=== PATIENT | female | born 1980 | race Hispanic/Latino ===

== ENCOUNTER 2018-11-12 05:26 | Emergency (ER) | payer OTHER, SELFPAY ==
[2018-11-12] MEDS ORDERED: HYDROCODONE/APAP 5/325 MG TAB ONE (06:25)
--- NOTE | 2018-11-12 06:48 | ER ---
Nurse's Notes [facility] Name: Farheen Espino Age: 38 yrs Sex: Female : 1980 Arrival Date: 11/12/2018 Time: 05:27 Bed 19 Private MD: Diagnosis: Gout Presentation: 11/12 05:34 Presenting complaint: Patient states: Pain to left ankle and great toe joint x 2 days, lp1 worsening pain; States hx of gout, states feels similar. Transition of care: patient was not received from another setting of care. Onset of symptoms was November 12, 2018. Risk Assessment: Do you want to hurt yourself or someone else? Patient reports no desire to harm self or others. Initial Sepsis Screen: Does the patient meet any 2 criteria? No. Patient's initial sepsis screen is negative. Does the patient have a suspected source of infection? No. Patient's initial sepsis screen is negative. Care prior to arrival: None. 05:34 Method Of Arrival: Wheelchair lp1 05:34 Acuity: CASSIA 4 lp1 CENTER MGR: 05:36 LMP N/A - Irregular menses lp1 Historical: - Allergies: 05:36 phenazopyridine HCl; lp1 05:36 Codeine; lp1 05:36 Cephalexin Monohydrate; lp1 05:36 Keflex; lp1 - Home Meds: 05:36 None [Active]; lp1 - PMHx: 05:36 Hypothyroidism; polycystic overy; Gout; lp1 - PSHx: 05:36 Cholecystectomy; ; Tubal ligation; lp1 - Immunization history:: Adult Immunizations up to date. - Social history:: Smoking status: Patient uses tobacco products, smokes one-half pack cigarettes per day. - Ebola Screening: : No symptoms or risks identified at this time. Screenin:37 Abuse screen: Denies threats or abuse. Denies injuries from another. Nutritional lp1 screening: No deficits noted. Tuberculosis screening: No symptoms or risk factors identified. Fall Risk None identified. Assessment: 05:33 General: Appears uncomfortable, Behavior is calm, cooperative, ice pack placed to left ak1 ankle. . Pain: Complains of pain in left lateral malleolus, left medial malleolus and left first toe. Neuro: No deficits noted. Cardiovascular: No deficits noted. Respiratory: No deficits noted. GI: No signs and/or symptoms were reported involving the gastrointestinal system. : No signs and/or symptoms were reported regarding the genitourinary system. EENT: No signs and/or symptoms were reported regarding the EENT system. Derm: Skin is intact, is healthy with good turgor, Skin is dry, Skin is pink, warm \\T\\ dry. Reports pain that is 9 out of 10 on a pain scale. Musculoskeletal: Range of motion: limited in left ankle pt with limping gait to ER19 from lobby. 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 Injury Description: pt denies injury to left great toe or left ankle. Vital Signs: 05:36 BP 127 / 95; Pulse 98; Resp 18; Temp 97.8(TE); Pulse Ox 95% on R/A; Weight 122.47 kg; lp1 Height 4 ft. 11 in. (149.86 cm); Pain 9/10; 06:36 BP 112 / 73; Pulse 75; Resp 18; Pulse Ox 98% on R/A; ak1 05:36 Body Mass Index 54.53 (122.47 kg, 149.86 cm) lp1 ED Course: 05:27 Patient arrived in ED. ds1 05:29 Marline Ruelas, MACI is Primary Nurse. ak1 05:35 Triage completed. lp1 05:37 Arm band placed on right wrist. lp1 05:37 Patient has correct armband on for positive identification. lp1 06:02 Peter Bell NP is PHCP. pm1 06:02 Isaias Arreaga MD is Attending Physician. pm1 06:07 Initial lab(s) drawn, by me, sent to lab. ak1 06:35 Patient did not have IV access during this emergency room visit. ak1 06:40 X-ray completed. Portable x-ray completed in exam room. Patient tolerated procedure kw well. 06:42 Ankle Left 3 View XRAY In Process Unspecified. EDMS 07:02 No provider procedures requiring assistance completed. ak1 Administered Medications: 06:11 Drug: [place] 5 mg-325 mg 1 tabs Route: PO; ak1 06:34 Follow up: Response: No adverse reaction; Pain is decreased ak1 07:01 Drug: TORadol 60 mg Route: IM; Site: left gluteus; ak1 07:01 Follow up: Response: No adverse reaction; Medication administered at discharge. ak1 07:01 Drug: predniSONE 60 mg Route: PO; ak1 07:02 Follow up: Response: No adverse reaction; Medication administered at discharge. ak1 Outcome: 06:47 Discharge ordered by MD. pm1 07:02 Discharged to home via wheelchair, with family. ak1 07:02 Condition: good 07:02 Discharge instructions given to patient, family, Instructed on discharge instructions, follow up and referral plans. no drinking with medication, no driving heavy equipment, medication usage, Demonstrated understanding of instructions, follow-up care, medications, Prescriptions given X 1. 07:15 Patient left the ED. hb Signatures: Dispatcher [employer] EDMS Dayami Silva ds1 Kerry Fernandez Laura, RN RN lp1 Marline Ruelas RN RN ak1 Peter Bell, ABNER VENEER SLICING MACHINE OPERATOR pm1 Codie Meredith RN RN hb
--- NOTE | 2018-11-12 06:48 | EDPHYS ---
Physician Documentation [facility] Name: Farheen Espino Age: 38 yrs Sex: Female : 1980 Arrival Date: 11/12/2018 Time: 05:27 Bed 19 Private MD: ED Physician Isaias Arreaga HPI: 11/12 06:42 This 38 yrs old Female presents to ER via Wheelchair with complaints of Left pm1 Foot Pain. 06:42 The patient presents with pain. The complaints affect the left ankle and left first pm1 toe. Context: The problem was sustained at home, resulted from gout flare up. Onset: The symptoms/episode began/occurred 3 day(s) ago. Modifying factors: The symptoms are alleviated by nothing. the symptoms are aggravated by movement, weight bearing. Associated signs and symptoms: Pertinent negatives calf tenderness, fever, numbness, tingling. Treatment prior to arrival includes: over the counter medications, NSAIDS. Severity of symptoms: in the emergency department the symptoms are unchanged. The patient has experienced similar episodes in the past, a few times. The patient has not recently seen a physician. 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 - Social history:: Smoking status: Patient uses tobacco products, smokes one-half pack cigarettes per day. - Ebola Screening: : No symptoms or risks identified at this time. ROS: 06:42 Constitutional: Negative for fever, chills, and weight loss, Eyes: Negative for injury, pm1 pain, redness, and discharge, ENT: Negative for injury, pain, and discharge, Neck: Negative for injury, pain, and swelling, Cardiovascular: Negative for chest pain, palpitations, and edema, Respiratory: Negative for shortness of breath, cough, wheezing, and pleuritic chest pain, Abdomen/GI: Negative for abdominal pain, nausea, vomiting, diarrhea, and constipation, Back: Negative for injury and pain, : Negative for injury, bleeding, discharge, and swelling. 06:42 Skin: Negative for injury, rash, and discoloration, Neuro: Negative for headache, weakness, numbness, tingling, and seizure. 06:42 MS/extremity: Positive for pain, of the left ankle and left first toe, Negative for injury or acute deformity, deformity, paresthesias. Exam: 06:42 Constitutional: This is a well developed, well nourished patient who is awake, alert, pm1 and in no acute distress. Head/Face: Normocephalic, atraumatic. Chest/axilla: Normal chest wall appearance and motion. Nontender with no deformity. No lesions are appreciated. Cardiovascular: Regular rate and rhythm with a normal S1 and S2. No gallops, murmurs, or rubs. Normal PMI, no JVD. No pulse deficits. Respiratory: Lungs have equal breath sounds bilaterally, clear to auscultation and percussion. No rales, rhonchi or wheezes noted. No increased work of breathing, no retractions or nasal flaring. Back: No spinal tenderness. No costovertebral tenderness. Full range of motion. Skin: Warm, dry with normal turgor. Normal color with no rashes, no lesions, and no evidence of cellulitis. 06:42 Musculoskeletal/extremity: Extremities: grossly normal except: noted in the left first toe and left medial malleolus and left lateral malleolus: tenderness, Circulation is intact in all extremities. Sensation intact. 06:42 Neuro: Orientation: is normal, Motor: moves all fours, strength is normal, strength is 5/5 in all extremities, Sensation: is normal, no obvious gross deficits. Vital Signs: 05:36 BP 127 / 95; Pulse 98; Resp 18; Temp 97.8(TE); Pulse Ox 95% on R/A; Weight 122.47 kg; lp1 Height 4 ft. 11 in. (149.86 cm); Pain 9/10; 06:36 BP 112 / 73; Pulse 75; Resp 18; Pulse Ox 98% on R/A; ak1 05:36 Body Mass Index 54.53 (122.47 kg, 149.86 cm) lp1 MDM: 06:02 Patient medically screened. pm1 06:39 Data reviewed: vital signs. Data interpreted: Pulse oximetry: on room air is 98 %. pm1 Interpretation: normal. 06:39 Counseling: I had a detailed discussion with the patient and/or guardian regarding: the pm1 historical points, exam findings, and any diagnostic results supporting the discharge/admit diagnosis, lab results, radiology results, the need for outpatient follow up, to return to the emergency department if symptoms worsen or persist or if there are any questions or concerns that arise at home. 11/12 05:55 Order name: Uric Acid; Complete Time: 06:38 gs 11/12 05:55 Order name: Ankle Left 3 View XRAY gs Administered Medications: 06:11 Drug: [place] 5 mg-325 mg 1 tabs Route: PO; ak1 06:34 Follow up: Response: No adverse reaction; Pain is decreased ak1 07:01 Drug: TORadol 60 mg Route: IM; Site: left gluteus; ak1 07:01 Follow up: Response: No adverse reaction; Medication administered at discharge. ak1 07:01 Drug: predniSONE 60 mg Route: PO; ak1 07:02 Follow up: Response: No adverse reaction; Medication administered at discharge. ak1 Disposition: 11/12/18 06:47 Discharged to Home. Impression: Gout. - Condition is Stable. - Discharge Instructions: Gout. - Prescriptions for Medrol (Bjorn) 4 mg Oral Tablets, Dose Pack - take 1 tablet by ORAL route as directed - follow package instructions; 1 packet. - Medication Reconciliation Form, Thank You Letter, Antibiotic Education, Prescription Opioid Use form. - Follow up: Emergency Department; When: As needed; Reason: Worsening of condition. Follow up: Private Physician; When: 2 - 3 days; Reason: Recheck today's complaints, Continuance of care, Re-evaluation by your physician. - Problem is new. - Symptoms have improved. Addendum: 11/13/2018 13:06 Co-signature as Attending Physician, Isaias Arreaga MD. g s Signatures: Dispatcher [employer] EDLily Celis RN RN lp1 Marline Ruelas RN RN ak1 Peter Bell, GENERATING PLANT SUPERINTENDENT GENERATING PLANT SUPERINTENDENT pm1 Codie Meredith RN RN hb Starr, Gregory, MD MD Corrections: (The following items were deleted from the chart) 11/12 07:15 06:47 11/12/2018 06:47 Discharged to Home. Impression: Gout. Condition is Stable. Forms hb are Medication Reconciliation Form, Thank You Letter, Antibiotic Education, Prescription Opioid Use. Follow up: Emergency Department; When: As needed; Reason: Worsening of condition. Follow up: Private Physician; When: 2 - 3 days; Reason: Recheck today's complaints, Continuance of care, Re-evaluation by your physician. Problem is new. Symptoms have improved. pm1
[2018-11-12] MEDS ORDERED: KETOROLAC 30 MG/ML INJ ONE (07:09)
[2018-11-12] MEDS ORDERED: predniSONE 20 MG TAB ONE (07:09)
[2018-11-12 07:27] VITALS: TEMP 97.8
[2018-11-12 07:29] VITALS: BP 112/73; O2SAT 98
--- NOTE | 2018-11-12 08:17 | RAD REPORT ---
EXAM DESCRIPTION: RAD - Ankle Left 3 View - 11/12/2018 6:40 am CLINICAL HISTORY: PAIN COMPARISON: No comparisons FINDINGS: Moderate soft tissue swelling is seen about the ankle. No acute fracture or dislocation is seen. Small plantar calcaneal spur.
== END 2018-11-12 07:15 | disposition home or self-care (01) ==
LOC: ER 05:26
DX: M10.9 Gout, unspecified (principal); E03.9 Hypothyroidism, unspecified; F17.200 Nicotine dependence, unspecified, uncomplicated; Z88.6 Allergy status to analgesic agent; Z88.1 Allergy status to other antibiotic agents; Z88.5 Allergy status to narcotic agent
CPT/HCPCS: 36415; 84550; 96372; 99284; J7512

== ENCOUNTER 2018-12-18 16:55 | Emergency (ER) | payer SELFPAY ==
--- NOTE | 2018-12-18 17:15 | ER ---
Nurse's Notes [facility] Name: Farheen Espino Age: 38 yrs Sex: Female : 1980 Arrival Date: 12/18/2018 Time: 16:58 Bed 5 Private MD: Diagnosis: Gout Presentation: 12/18 16:59 Presenting complaint: Patient states: hx of gout, a week ago, i started having this hj pain on the top of my R foot, im not taking anything for gout because i don't have a doctor and i don't have insurance; denies trauma to the area;. Transition of care: patient was not received from another setting of care. Onset of symptoms was December 18, 2018. Risk Assessment: Do you want to hurt yourself or someone else? Patient reports no desire to harm self or others. Initial Sepsis Screen: Does the patient meet any 2 criteria? No. Patient's initial sepsis screen is negative. Does the patient have a suspected source of infection? No. Patient's initial sepsis screen is negative. Care prior to arrival: None. 16:59 Method Of Arrival: Ambulatory 16:59 Acuity: CASSIA 4 hj Triage Assessment: 17:05 General: Behavior is appropriate for age. 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 - Social history:: Smoking status: . - Ebola Screening: : Patient denies travel to an Ebola-affected area in the 21 days before illness onset. Screenin:03 Abuse screen: Denies threats or abuse. Nutritional screening: No deficits noted. tw2 Tuberculosis screening: No symptoms or risk factors identified. Fall Risk None identified. Assessment: 17:05 General: Appears in no apparent distress. Pain: Complains of pain in right foot. Neuro: tw2 Level of Consciousness is awake, alert, obeys commands, Oriented to person, place, time, situation. Cardiovascular: Patient's skin is warm and dry. Respiratory: Airway is patent Respiratory effort is even, unlabored, Respiratory pattern is regular, symmetrical. GI: No signs and/or symptoms were reported involving the gastrointestinal system. : No signs and/or symptoms were reported regarding the genitourinary system. EENT: No signs and/or symptoms were reported regarding the EENT system. Derm: Reports increased pain right foot. Musculoskeletal: Range of motion: intact in all extremities. 17:36 Reassessment: Patient appears in no apparent distress at this time. No changes from sv previously documented assessment. Patient and/or family updated on plan of care and expected duration. Pain level reassessed. Patient is alert, oriented x 3, equal unlabored respirations, skin warm/dry/pink. Vital Signs: 17:01 BP 129 / 77; Pulse 108; Resp 18; Temp 98.4(TE); Pulse Ox 97% on R/A; Weight 117.93 kg; hj Height 4 ft. 11 in. (149.86 cm); Pain 9/10; 17:01 Body Mass Index 52.51 (117.93 kg, 149.86 cm) ED Course: 16:58 Patient arrived in ED. as 17:00 Triage completed. hj 17:00 Arm band placed on right wrist. hj 17:03 Becky Martinez, RN is Primary Nurse. tw2 17:03 Bed in low position. Call light in reach. tw2 17:05 Peter Bell NP is PHCP. pm1 17:05 Cali Adams MD is Attending Physician. pm1 17:20 No provider procedures requiring assistance completed. Patient did not have IV access sv during this emergency room visit. Administered Medications: 17:20 Drug: [place] 5 mg-325 mg 1 tabs Route: PO; sv 17:36 Follow up: Response: No adverse reaction sv 17:20 Drug: TORadol 60 mg Route: IM; Site: right gluteus; sv 17:36 Follow up: Response: No adverse reaction sv 17:20 Drug: Decadron 10 mg Route: IM; Site: right gluteus; sv 17:35 Follow up: Response: No adverse reaction sv Outcome: 17:15 Discharge ordered by . pm1 17:36 Discharged to home via wheelchair, with family. sv 17:36 Condition: stable 17:36 Discharge instructions given to patient, family, Instructed on discharge instructions, follow up and referral plans. medication usage, Demonstrated understanding of instructions, follow-up care, medications, Prescriptions given X 2. 17:36 Patient left the ED. sv Signatures: Sameera Dominguez, RN RN Trina Robleod Henry RN MACI Peter Bell, GROUNDSKEEPER SUPERVISOR GROUNDSKEEPER SUPERVISOR pm1 Becky Martinez RN RN tw2
--- NOTE | 2018-12-18 17:16 | EDPHYS ---
Physician Documentation [facility] Name: Farheen Espino Age: 38 yrs Sex: Female : 1980 Arrival Date: 12/18/2018 Time: 16:58 Bed 5 Private MD: ED Physician Cali Adams HPI: 12/18 17:09 This 38 yrs old Female presents to ER via Ambulatory with complaints of Right pm1 Foot Pain - Gout. 17:09 The patient presents with pain. The complaints affect the right ankle and right foot. pm1 Context: The problem was sustained at home, resulted from gout flare up, the patient can fully bear weight, the patient is able to ambulate. Onset: The symptoms/episode began/occurred 1 week(s) ago. Modifying factors: The symptoms are alleviated by elevating leg, the symptoms are aggravated by movement, weight bearing. Associated signs and symptoms: Pertinent negatives calf tenderness, fever, numbness, tingling. Severity of symptoms: in the emergency department the symptoms are actually worse. The patient has experienced similar episodes in the past, multiple times. The patient has not recently seen a physician, Seen in ED by me one month ago for the same complaint. Denies trauma. 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 - Social history:: Smoking status: . - Ebola Screening: : Patient denies travel to an Ebola-affected area in the 21 days before illness onset. ROS: 17:09 Constitutional: Negative for fever, chills, and weight loss, Neck: Negative for injury, pm1 pain, and swelling, Cardiovascular: Negative for chest pain, palpitations, and edema, Respiratory: Negative for shortness of breath, cough, wheezing, and pleuritic chest pain, Abdomen/GI: Negative for abdominal pain, nausea, vomiting, diarrhea, and constipation, Back: Negative for injury and pain. 17:09 Skin: Negative for injury, rash, and discoloration, Neuro: Negative for headache, weakness, numbness, tingling, and seizure. 17:09 MS/extremity: Positive for pain, swelling, of the right ankle and right foot, Negative for decreased range of motion, deformity. Exam: 17:09 Constitutional: This is a well developed, well nourished patient who is awake, alert, pm1 and in no acute distress. Head/Face: Normocephalic, atraumatic. Neck: Trachea midline, no thyromegaly or masses palpated, and no cervical lymphadenopathy. Supple, full range of motion without nuchal rigidity, or vertebral point tenderness. No Meningismus. Chest/axilla: Normal chest wall appearance and motion. Nontender with no deformity. No lesions are appreciated. Cardiovascular: Regular rate and rhythm with a normal S1 and S2. No gallops, murmurs, or rubs. Normal PMI, no JVD. No pulse deficits. Respiratory: Lungs have equal breath sounds bilaterally, clear to auscultation and percussion. No rales, rhonchi or wheezes noted. No increased work of breathing, no retractions or nasal flaring. Abdomen/GI: Soft, non-tender, with normal bowel sounds. No distension or tympany. No guarding or rebound. No evidence of tenderness throughout. Back: No spinal tenderness. No costovertebral tenderness. Full range of motion. Skin: Warm, dry with normal turgor. Normal color with no rashes, no lesions, and no evidence of cellulitis. 17:09 Musculoskeletal/extremity: Extremities: grossly normal except: noted in the right ankle: swelling, tenderness, There is no evidence of decreased ROM, deformity, ROM: intact in all extremities, Circulation is intact in all extremities. Sensation intact. 17:09 Neuro: Orientation: is normal, Motor: is normal, Sensation: is normal, no obvious gross deficits. Vital Signs: 17:01 BP 129 / 77; Pulse 108; Resp 18; Temp 98.4(TE); Pulse Ox 97% on R/A; Weight 117.93 kg; hj Height 4 ft. 11 in. (149.86 cm); Pain 9/10; 17:01 Body Mass Index 52.51 (117.93 kg, 149.86 cm) MDM: 17:06 Patient medically screened. pm1 17:09 Data reviewed: vital signs. Data interpreted: Pulse oximetry: on room air is 97 %. pm1 Interpretation: normal. Counseling: I had a detailed discussion with the patient and/or guardian regarding: the historical points, exam findings, and any diagnostic results supporting the discharge/admit diagnosis. 17:14 Counseling: I had a detailed discussion with the patient and/or guardian regarding: the pm1 historical points, exam findings, and any diagnostic results supporting the discharge/admit diagnosis, the need for outpatient follow up, to return to the emergency department if symptoms worsen or persist or if there are any questions or concerns that arise at home. Administered Medications: 17:20 Drug: [place] 5 mg-325 mg 1 tabs Route: PO; sv 17:36 Follow up: Response: No adverse reaction sv 17:20 Drug: TORadol 60 mg Route: IM; Site: right gluteus; sv 17:36 Follow up: Response: No adverse reaction sv 17:20 Drug: Decadron 10 mg Route: IM; Site: right gluteus; sv 17:35 Follow up: Response: No adverse reaction sv Disposition: 12/19 07:00 Co-signature as Attending Physician, Cali Adams MD I agree with the assessment and kdr plan of care. Disposition: 12/18/18 17:15 Discharged to Home. Impression: Gout. - Condition is Stable. - Discharge Instructions: Gout. - Prescriptions for Diclofenac Sodium 75 mg Oral Tablet Sustained Release - take 1 tablet by ORAL route 2 times per day; 30 tablet. Medrol (Bjorn) 4 mg Oral Tablets, Dose Pack - take 1 tablet by ORAL route as directed - follow package instructions; 1 packet. - Medication Reconciliation Form, Thank You Letter, Antibiotic Education, Prescription Opioid Use form. - Follow up: Emergency Department; When: As needed; Reason: Worsening of condition. Follow up: Private Physician; When: 2 - 3 days; Reason: Recheck today's complaints, Continuance of care, Re-evaluation by your physician. - Problem is new. - Symptoms have improved. Signatures: Sameera Dominguez RN Cali Brenner MD MD [facility] Drew Grajeda RN RN hj Peter Bell, PHYSICAL THERAPY NURSE PHYSICAL THERAPY NURSE pm1 Becky Martinez RN RN tw2 Corrections: (The following items were deleted from the chart) 12/18 17:36 17:15 12/18/2018 17:15 Discharged to Home. Impression: Gout. Condition is Stable. Forms sv are Medication Reconciliation Form, Thank You Letter, Antibiotic Education, Prescription Opioid Use. Follow up: Emergency Department; When: As needed; Reason: Worsening of condition. Follow up: Private Physician; When: 2 - 3 days; Reason: Recheck today's complaints, Continuance of care, Re-evaluation by your physician. Problem is new. Symptoms have improved. pm1
[2018-12-18] MEDS ORDERED: KETOROLAC 30 MG/ML INJ ONE (17:32)
[2018-12-18] MEDS ORDERED: HYDROCODONE/APAP 5/325 MG TAB ONE (17:32)
[2018-12-18] MEDS ORDERED: dexAMETHasone 10 MG/ML VIAL ONE (17:32)
[2018-12-18 18:19] VITALS: BP 129/77; TEMP 98.4; O2SAT 97
== END 2018-12-18 17:36 | disposition home or self-care (01) ==
LOC: ER 16:55
DX: M10.9 Gout, unspecified (principal); Z88.1 Allergy status to other antibiotic agents; Z88.5 Allergy status to narcotic agent; Z88.8 Allergy status to other drugs, medicaments and biological substances
CPT/HCPCS: 96372; 99283; J1100

== ENCOUNTER 2019-11-04 22:18 | Emergency (ER) | payer SELFPAY ==
[2019-11-04] MEDS ORDERED: dexAMETHasone 10 MG/ML VIAL ONE (22:56)
[2019-11-04] MEDS ORDERED: COLCHICINE 0.6 MG TAB ONE (22:56)
[2019-11-04] MEDS ORDERED: MEPERIDINE HCL 25 MG/ML SYR ONE (22:58)
--- NOTE | 2019-11-04 23:20 | ER ---
Nurse's Notes [facility] Name: Farheen Espino Age: 39 yrs Sex: Female : 1980 Arrival Date: 11/04/2019 Time: 22:21 Bed 13 Private MD: Diagnosis: Gout Presentation: 11/03 22:26 Chief complaint: Patient states: pain in the right large toe, reports has hx of gout sg with taking allopurinol and ibuprofen, denies any changes in diet aside from eating more fish, denies trauma or injury. Coronavirus screen: Proceed with normal triage. Ebola Screen: Patient negative for fever greater than or equal to 101.5 degrees Fahrenheit, and additional compatible Ebola Virus Disease symptoms Patient denies exposure to infectious person. Patient denies travel to an Ebola-affected area in the 21 days before illness onset. No symptoms or risks identified at this time. Initial Sepsis Screen: Does the patient meet any 2 criteria? No. Patient's initial sepsis screen is negative. Does the patient have a suspected source of infection? No. Patient's initial sepsis screen is negative. Risk Assessment: Do you want to hurt yourself or someone else? Patient reports no desire to harm self or others. Onset of symptoms was November 04, 2019. Care prior to arrival: None. Transition of care: patient was not received from another setting of care. 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 - Social history:: Smoking status: Patient denies any tobacco usage or history of. - Family history:: not pertinent. - Hospitalizations: : No recent hospitalization is reported. Screenin:10 Abuse screen: Denies threats or abuse. Nutritional screening: No deficits noted. jd3 Tuberculosis screening: No symptoms or risk factors identified. Fall Risk Ambulatory Aid- None/Bed Rest/Nurse Assist (0 pts). Gait- Normal/Bed Rest/Wheelchair (0 pts) Mental Status- Oriented to own ability (0 pts). Total Vaughn Fall Scale indicates No Risk (0-24 pts). Assessment: 23:08 General: Appears in no apparent distress. comfortable, Behavior is calm, cooperative, jd3 appropriate for age. Pain: Complains of pain in right first toe Quality of pain is described as aching, sharp, tender. Neuro: Level of Consciousness is awake, alert, obeys commands, Oriented to person, place, time, situation. Cardiovascular: Denies chest pain, Capillary refill < 3 seconds Patient's skin is warm and dry. Respiratory: Airway is patent Respiratory effort is even, unlabored, Respiratory pattern is regular, symmetrical, Denies cough, shortness of breath. GI: No signs and/or symptoms were reported involving the gastrointestinal system. : No signs and/or symptoms were reported regarding the genitourinary system. EENT: No signs and/or symptoms were reported regarding the EENT system. Derm: Skin is intact, Skin is dry, Skin is normal, Skin temperature is warm. Musculoskeletal: Circulation, motion, and sensation intact. Range of motion: intact in all extremities. Vital Signs: 22:26 BP 138 / 94; Pulse 87; Resp 20; Temp 99.1; Pulse Ox 100% on R/A; Pain 8/10; sg 23:31 BP 122 / 75; Pulse 73; Resp 17 S; Pulse Ox 99% on R/A; jd3 ED Course: 22:21 Patient arrived in ED. cf2 22:27 Nate Levine MD is Attending Physician. rn 22:27 Arm band placed on. sg 22:34 Triage completed. sg 22:40 Thang Gallo, MACI is Primary Nurse. jd3 23:10 Patient has correct armband on for positive identification. Bed in low position. Call jd3 light in reach. Side rails up X 1. Adult w/ patient. Pulse ox on. NIBP on. 23:30 No provider procedures requiring assistance completed. Patient did not have IV access jd3 during this emergency room visit. Administered Medications: 22:57 Drug: Colchicine-Probenecid 2 tabs Route: PO; jd3 23:30 Follow up: Response: No adverse reaction jd3 22:57 Drug: Decadron 10 mg Route: IM; Site: right deltoid; jd3 23:30 Follow up: Response: No adverse reaction jd3 22:57 Drug: Demerol 25 mg Route: IM; Site: right deltoid; jd3 23:33 Follow up: Response: No adverse reaction; RASS: Alert and Calm (0) jd3 Outcome: 23:20 Discharge ordered by . rn 23:31 Discharged to home ambulatory, with family. jd3 23:31 Condition: stable 23:31 Discharge instructions given to patient, family, Instructed on discharge instructions, follow up and referral plans. medication usage, Demonstrated understanding of instructions, follow-up care, medications, Prescriptions given X 1. 23:32 Patient left the ED. jd3 Signatures: Bo Fierro RN RN sg Nieto, Roman, MD MD rn Davies, Jonathon, RN RN jd3 Frazier, Celesta cf2
--- NOTE | 2019-11-04 23:20 | EDPHYS ---
Physician Documentation [facility] Name: Farheen Espino Age: 39 yrs Sex: Female : 1980 Arrival Date: 11/04/2019 Time: 22:21 Bed 13 Private MD: ED Physician Nate Levine HPI: 11/03 22:39 This 39 yrs old Female presents to ER via Ambulatory with complaints of GOUT rn FLARE UP, Foot Pain. 22:39 The patient presents with pain, that is acute. The complaints affect the right foot. rn Onset: The symptoms/episode began/occurred 1 week(s) ago. Modifying factors: The symptoms are alleviated by nothing, the symptoms are aggravated by weight bearing, movement. Severity of symptoms: At their worst the symptoms were moderate, in the emergency department the symptoms are unchanged. The patient has experienced similar episodes in the past. Reports identical to previous gout flares, gets them quarterly, no fever or trauma, pain in right great toe, worse with movement, taking ibuprofen and diclofenac. . 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 - Social history:: Smoking status: Patient denies any tobacco usage or history of. - Family history:: not pertinent. - Hospitalizations: : No recent hospitalization is reported. ROS: 22:39 Constitutional: Negative for fever, chills, and weight loss, MS/Extremity: Negative for rn injury and deformity, Skin: Negative for injury, rash, and discoloration. Exam: 22:39 Constitutional: This is a well developed, well nourished patient who is awake, alert, rn and in no acute distress. MS/ Extremity: Pulses equal, no cyanosis. Neurovascular intact. Full, normal range of motion. Equal circumference. + tenderness at base of right great toe and painful ROM, no deformity, no trauma, no open wounds. Vital Signs: 22:26 BP 138 / 94; Pulse 87; Resp 20; Temp 99.1; Pulse Ox 100% on R/A; Pain 8/10; sg 23:31 BP 122 / 75; Pulse 73; Resp 17 S; Pulse Ox 99% on R/A; jd3 MDM: 22:27 Patient medically screened. rn 23:20 Differential diagnosis: gout. Data reviewed: vital signs, nurses notes, and as a rn result, I will discharge patient. Counseling: I had a detailed discussion with the patient and/or guardian regarding: the historical points, exam findings, and any diagnostic results supporting the discharge/admit diagnosis, the need for outpatient follow up, to return to the emergency department if symptoms worsen or persist or if there are any questions or concerns that arise at home. Response to treatment: the patient's symptoms have mildly improved after treatment, and as a result, I will discharge patient. Special discussion: I discussed with the patient/guardian in detail that at this point there is no indication for admission to the hospital. It is understood, however, that if the symptoms persist or worsen the patient needs to return immediately for re-evaluation. Administered Medications: 22:57 Drug: Colchicine-Probenecid 2 tabs Route: PO; jd3 23:30 Follow up: Response: No adverse reaction jd3 22:57 Drug: Decadron 10 mg Route: IM; Site: right deltoid; jd3 23:30 Follow up: Response: No adverse reaction jd3 22:57 Drug: Demerol 25 mg Route: IM; Site: right deltoid; jd3 23:33 Follow up: Response: No adverse reaction; RASS: Alert and Calm (0) jd3 Disposition: 11/04/19 23:20 Discharged to Home. Impression: Gout. - Condition is Stable. - Discharge Instructions: Gout. - Prescriptions for Medrol (Bjorn) 4 mg Oral Tablets, Dose Pack - take 1 tablet by ORAL route as directed - follow package instructions; 1 packet. - Medication Reconciliation Form, Thank You Letter, Antibiotic Education, Prescription Opioid Use, Work release form form. - Follow up: Private Physician; When: As needed; Reason: Recheck today's complaints, Re-evaluation by your physician. - Problem is an acute exacerbation. - Symptoms have improved. Signatures: Bo Fierro RN RN sg Nieto, Roman, MD MD rn Davies, Jonathon, RN RN jd3 Corrections: (The following items were deleted from the chart) 23:32 23:20 11/04/2019 23:20 Discharged to Home. Impression: Gout. Condition is Stable. jd3 Discharge Instructions: Gout. Prescriptions for Medrol (Bjorn) 4 mg Oral Tablets, Dose Pack - take 1 tablet by ORAL route as directed - follow package instructions; 1 packet. and Forms are Work release form, Medication Reconciliation Form, Thank You Letter, Antibiotic Education, Prescription Opioid Use. Follow up: Private Physician; When: As needed; Reason: Recheck today's complaints, Re-evaluation by your physician. Problem is an acute exacerbation. Symptoms have improved. rn
[2019-11-04 23:40] VITALS: TEMP 99.1
[2019-11-04 23:48] VITALS: BP 122/75; O2SAT 99
== END 2019-11-04 23:32 | disposition home or self-care (01) ==
LOC: ER 22:18
DX: M10.9 Gout, unspecified (principal); Z88.8 Allergy status to other drugs, medicaments and biological substances; Z88.6 Allergy status to analgesic agent; Z88.1 Allergy status to other antibiotic agents
CPT/HCPCS: 96372; 99283; J1100; J2175

== ENCOUNTER 2020-05-15 | Emergency (ER) | payer SELFPAY ==
--- NOTE | 2020-05-15 15:43 | EDPHYS ---
Physician Documentation [facility] Name: Farheen Espino Age: 40 yrs Sex: Female : 1980 Arrival Date: 05/15/2020 Time: 14:30 Bed 14 Private MD: ED Physician Nate Levine HPI: 05/15 15:37 This 40 yrs old Female presents to ER via Ambulatory with complaints of Back cp Pain. 15:37 The patient presents with pain that is acute, with no known mechanism of injury. The cp symptoms are located in the right subscapular area. Onset: The symptoms/episode began/occurred 2 week(s) ago. The pain radiates to the right shoulder. Associated signs and symptoms: Pertinent negatives: chest pain, shortness of breath. The problem was sustained from unknown cause. Modifying factors: the patient symptoms are aggravated by movement of right arm and turning to left. Patient reports pain improved with OTC Ibuprofen. 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 - Social history:: Smoking status: Patient denies any tobacco usage or history of. ROS: 15:38 Constitutional: Negative for fever. cp 15:38 Neck: Negative for pain with movement, pain at rest, stiffness. 15:38 Cardiovascular: Negative for chest pain, edema, palpitations. 15:38 Respiratory: Negative for cough, shortness of breath. 15:38 Abdomen/GI: Negative for abdominal pain. 15:38 Back: Positive for pain at rest, pain with movement, of the right subscapular area. 15:38 Neuro: Negative for altered mental status, headache, numbness, weakness. 15:38 All other systems are negative. Exam: 15:39 Head/Face: Normocephalic, atraumatic. cp 15:39 Constitutional: The patient appears in no acute distress, alert, awake, non-diaphoretic, non-toxic, well developed, well nourished, obese. 15:39 Neck: C-spine: vertebral tenderness, is not appreciated, ROM/movement: is normal, is supple, without pain, no range of motions limitations. 15:39 Chest/axilla: Inspection: normal. 15:39 Cardiovascular: Rate: normal. 15:39 Respiratory: the patient does not display signs of respiratory distress, Respirations: normal, no use of accessory muscles, no retractions, labored breathing, is not present, Breath sounds: are clear throughout, no decreased breath sounds, no stridor, no wheezing. 15:39 Abdomen/GI: Exam negative for discomfort, distension, guarding, Inspection: obese 15:39 Back: pain, that is mild, of the right subscapular area, vertebral tenderness, is not appreciated. 15:40 Skin: no rash present. cp 15:40 Neuro: Orientation: to person, place \T\ time. Mentation: is normal, Motor: moves all fours, strength is normal, Sensation: is normal, Deep tendon reflexes are 2+ (normal) in the right bicep, right tricep, right brachioradialis, left bicep, left tricep and left brachioradialis. Vital Signs: 14:39 BP 141 / 92; Pulse 71; Resp 16; Temp 98.1; Pulse Ox 99% ; Weight 127.01 kg; Height 5 sv ft. 0 in. (152.40 cm); Pain 7/10; 14:39 Body Mass Index 54.68 (127.01 kg, 152.40 cm) sv MDM: 15:28 Patient medically screened. cp 15:40 Differential diagnosis: strain, spasm. cp 15:41 Data reviewed: vital signs, nurses notes, and as a result, I will discharge patient. cp 15:41 Counseling: I had a detailed discussion with the patient and/or guardian regarding: the cp historical points, exam findings, and any diagnostic results supporting the discharge/admit diagnosis, the need for outpatient follow up, a family practitioner, to return to the emergency department if symptoms worsen or persist or if there are any questions or concerns that arise at home. Administered Medications: No medications were administered Disposition: 15:45 Chart complete. cp 15:51 Co-signature as Attending Physician, Nate Levine MD. rn Disposition: 05/15/20 15:42 Discharged to Home. Impression: Dorsalgia. - Condition is Stable. - Discharge Instructions: Back Pain, Adult. - Prescriptions for Lidoderm 5 % Topical adhesive patch,medicated - apply 1 patch by TRANSDERMAL route once daily apply to painful areas of back as directed; 1 box. Cyclobenzaprine 10 mg Oral Tablet - take 1 tablet by ORAL route every 8 hours As needed; 20 tablet. Diclofenac Sodium 75 mg Oral Tablet Sustained Release - take 1 tablet by ORAL route 2 times per day; 30 tablet. - Medication Reconciliation Form, Thank You Letter, Antibiotic Education, Prescription Opioid Use form. - Follow up: Private Physician; When: 2 - 3 days; Reason: Recheck today's complaints. - Problem is new. - Symptoms are unchanged. Signatures: Sameera Dominguez RN RN Nate Maher MD MD rn Page, Corey, PA PA cp Garcia, Victoria, RN RN vg1 Corrections: (The following items were deleted from the chart) 15:51 15:42 05/15/2020 15:42 Discharged to Home. Impression: Dorsalgia. Condition is Stable. vg1 Forms are Medication Reconciliation Form, Thank You Letter, Antibiotic Education, Prescription Opioid Use. Follow up: Private Physician; When: 2 - 3 days; Reason: Recheck today's complaints. Problem is new. Symptoms are unchanged. cp
--- NOTE | 2020-05-15 15:43 | ER ---
Nurse's Notes [facility] Name: Farheen Espino Age: 40 yrs Sex: Female : 1980 Arrival Date: 05/15/2020 Time: 14:30 Bed 14 Private MD: Diagnosis: Dorsalgia Presentation: 05/15 14:39 Chief complaint: Patient states: right sided back pain with spasms x 2 weeks. Ibuprofen sv taken today at 0930. Coronavirus screen: Client denies travel out of the [place] in the last 14 days. At this time, the client does not indicate any symptoms associated with coronavirus-19. Ebola Screen: No symptoms or risks identified at this time. Risk Assessment: Do you want to hurt yourself or someone else? Patient reports no desire to harm self or others. Onset of symptoms was April 2020. 14:39 Method Of Arrival: Ambulatory sv 14:39 Acuity: CASSIA 4 sv 14:39 Initial Sepsis Screen: Does the patient meet any 2 criteria? No. Patient's initial sv sepsis screen is negative. Does the patient have a suspected source of infection? No. Patient's initial sepsis screen is negative. 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 - Social history:: Smoking status: Patient denies any tobacco usage or history of. Screenin:30 Abuse screen: Denies threats or abuse. Nutritional screening: No deficits noted. vg1 Tuberculosis screening: No symptoms or risk factors identified. Fall Risk No fall in past 12 months (0 pts). No secondary diagnosis (0 pts). No IV (0 pts). Ambulatory Aid- None/Bed Rest/Nurse Assist (0 pts). Gait- Normal/Bed Rest/Wheelchair (0 pts) Mental Status- Oriented to own ability (0 pts). Total Vaughn Fall Scale indicates No Risk (0-24 pts). Assessment: 15:30 General: Appears in no apparent distress. comfortable, Behavior is calm, cooperative. vg1 Pain: Complains of pain in right scapular area Pain currently is 8 out of 10 on a pain scale. Quality of pain is described as sharp, throbbing, Pain began a couple of weeks ago, but within the past two days has felt worse. Alleviated by medications, Aggravated by lifting right shoulder. 15:30 Neuro: Level of Consciousness is awake, alert, obeys commands, Oriented to person, vg1 place, time, situation. Cardiovascular: Patient's skin is warm and dry. Respiratory: Airway is patent Respiratory effort is even, unlabored, Respiratory pattern is regular, symmetrical. GI: No signs and/or symptoms were reported involving the gastrointestinal system. : No signs and/or symptoms were reported regarding the genitourinary system. EENT: No signs and/or symptoms were reported regarding the EENT system. Derm: Skin is intact, is healthy with good turgor, Skin is pink, warm \T\ dry. Musculoskeletal: Range of motion: limited in right shoulder. Vital Signs: 14:39 BP 141 / 92; Pulse 71; Resp 16; Temp 98.1; Pulse Ox 99% ; Weight 127.01 kg; Height 5 sv ft. 0 in. (152.40 cm); Pain 7/10; 14:39 Body Mass Index 54.68 (127.01 kg, 152.40 cm) sv ED Course: 14:30 Patient arrived in ED. rg4 14:39 Triage completed. sv 14:39 Arm band placed on. sv 15:26 Vinh Watkins PA is PHCP. cp 15:26 Nate Levine MD is Attending Physician. cp 15:27 Marium Arnold, RN is Primary Nurse. vg1 15:30 Patient has correct armband on for positive identification. Bed in low position. Call vg1 light in reach. Adult w/ patient. 15:50 No provider procedures requiring assistance completed. Patient did not have IV access vg1 during this emergency room visit. Administered Medications: No medications were administered Outcome: 15:42 Discharge ordered by . cp 15:50 Discharged to home ambulatory. vg1 15:50 Condition: stable 15:50 Discharge instructions given to patient, Instructed on discharge instructions, follow up and referral plans. medication usage, Demonstrated understanding of instructions, follow-up care, medications, Prescriptions given X 3. 15:51 Patient left the ED. vg1 Signatures: Sameera Dominguez RN RN sv Vinh Watkins PA PA cp Garcia, Rubi rg4 Marium Arnold RN RN vg1 Corrections: (The following items were deleted from the chart) 14:41 14:39 Chief complaint: Patient states: right sided back pain with spasms x 2 weeks. sv sv 14:41 14:39 Pulse 71bpm; Resp 16bpm; Pulse Ox 99%; Temp 98.1F; 127.01 kg; Height 5 ft. 0 in.; sv BMI: 54.6; Pain 7/10; sv
== END 2020-05-15 15:51 | disposition home or self-care (01) ==
CPT/HCPCS: 99282

== ENCOUNTER 2020-06-22 17:03 | Emergency (ER) | payer SELFPAY ==
[2020-06-22] MEDS ORDERED: dexAMETHasone 10 MG/ML VIAL ONE (19:50)
[2020-06-22] MEDS ORDERED: COLCHICINE 0.6 MG TAB ONE (19:51)
[2020-06-22] MEDS ORDERED: MEPERIDINE HCL 25 MG/ML SYR ONE (19:51)
--- NOTE | 2020-06-22 20:19 | ER ---
Nurse's Notes [facility] Name: Farheen Espino Age: 40 yrs Sex: Female : 1980 Arrival Date: 06/22/2020 Time: 17:04 Bed 27 Private MD: Diagnosis: Gout-Left Ankle and Left Foot Presentation: 06/22 17:33 Chief complaint: Patient states: right ankle pain and swelling x 4 days ago. Pt states aa5 "I have gout". Coronavirus screen: Client denies travel out of the [place] in the last 14 days. At this time, the client does not indicate any symptoms associated with coronavirus-19. Ebola Screen: Patient negative for fever greater than or equal to 101.5 degrees Fahrenheit, and additional compatible Ebola Virus Disease symptoms. Initial Sepsis Screen: Does the patient meet any 2 criteria? No. Patient's initial sepsis screen is negative. Does the patient have a suspected source of infection? No. Patient's initial sepsis screen is negative. Risk Assessment: Do you want to hurt yourself or someone else? Patient reports no desire to harm self or others. Onset of symptoms was May 2020. 17:33 Method Of Arrival: Wheelchair aa5 17:33 Acuity: CASSIA 3 aa5 Historical: - Allergies: 17:35 Cephalexin Monohydrate; aa5 17:35 Codeine; aa5 17:35 Keflex; aa5 17:35 phenazopyridine HCl; aa5 17:35 Pyridium; aa5 - PMHx: 17:35 Depression; Gout; Hypothyroidism; polycystic overy; aa5 - PSHx: 17:35 ; Cholecystectomy; aa5 - Immunization history:: Adult Immunizations unknown. - Social history:: Smoking status: Patient denies any tobacco usage or history of. Screenin:00 Abuse screen: Denies threats or abuse. Denies injuries from another. Nutritional sg screening: No deficits noted. Tuberculosis screening: No symptoms or risk factors identified. Never had TB. Fall Risk None identified. Assessment: 19:00 General: Appears in no apparent distress. well groomed, well developed, well nourished, sg Behavior is calm, cooperative, appropriate for age. Pain: Complains of pain in right ankle Quality of pain is described as aching, sharp, stabbing. Neuro: Level of Consciousness is awake, alert, obeys commands, Oriented to person, place, time, Speech is normal, Facial symmetry appears normal. Cardiovascular: Patient's skin is warm and dry. Chest pain is denied. Respiratory: Airway is patent Respiratory effort is even, unlabored, Respiratory pattern is regular, symmetrical. GI: No signs and/or symptoms were reported involving the gastrointestinal system. : No signs and/or symptoms were reported regarding the genitourinary system. EENT: No signs and/or symptoms were reported regarding the EENT system. Derm: Skin is intact, is healthy with good turgor, Skin is dry, Skin is normal, Skin temperature is warm. Musculoskeletal: Circulation, motion, and sensation intact. Range of motion: limited in right ankle Swelling present in right ankle. Vital Signs: 17:33 BP 114 / 55; Pulse 83; Resp 16 S; Temp 98.0(TE); Pulse Ox 99% on R/A; Weight 127.01 kg aa5 (R); Height 5 ft. 0 in. (152.40 cm) (R); Pain 9/10; 17:33 Body Mass Index 54.68 (127.01 kg, 152.40 cm) aa5 ED Course: 17:04 Patient arrived in ED. ag5 17:33 Arm band placed on. aa5 17:34 Triage completed. aa5 19:00 No provider procedures requiring assistance completed. sg 19:01 Vinh Watkins PA is PHCP. cp 19:01 Stan Falcon MD is Attending Physician. cp 19:07 Nate Levine MD is Attending Physician. cp 19:15 Bo Fierro RN is Primary Nurse. sg Administered Medications: 19:29 CANCELLED (Physician Discretion): TORadol 30 mg IM once cp 19:40 Drug: Colchicine-Probenecid 2 tabs Route: PO; sg 19:40 Drug: Demerol 25 mg Route: IM; Site: right ventrogluteal; sg 19:40 Drug: Decadron 10 mg Route: IM; Site: right ventrogluteal; sg Outcome: 20:19 Discharge ordered by . cp 20:48 Patient left the ED. sg Signatures: Bo Fierro RN RN sg Calderon, Audri, RN RN 5 Vinh Watkins PA PA cp Gaskin, Ajare ag5
--- NOTE | 2020-06-22 20:19 | EDPHYS ---
Physician Documentation [facility] Name: Farheen Espino Age: 40 yrs Sex: Female : 1980 Arrival Date: 06/22/2020 Time: 17:04 Bed 27 Private MD: ED Physician Nate Levine HPI: 06/22 19:30 This 40 yrs old Female presents to ER via Wheelchair with complaints of Gout. cp 19:30 The patient presents with pain, that is acute. The complaints affect the right ankle cp and medial aspect of right foot. Context: Patient reports history of gout and previous episodes of pain to same areas of foot and ankle. Patient denies injury. 19:30 Onset: The symptoms/episode began/occurred 4 day(s) ago. cp 19:30 Associated signs and symptoms: Pertinent positives: swelling, Pertinent negatives calf cp tenderness, fever, numbness. Treatment prior to arrival includes: lidocaine patches applied. Historical: - Allergies: 17:35 Cephalexin Monohydrate; aa5 17:35 Codeine; aa5 17:35 Keflex; aa5 17:35 phenazopyridine HCl; aa5 17:35 Pyridium; aa5 - PMHx: 17:35 Depression; Gout; Hypothyroidism; polycystic overy; aa5 - PSHx: 17:35 ; Cholecystectomy; aa5 - Immunization history:: Adult Immunizations unknown. - Social history:: Smoking status: Patient denies any tobacco usage or history of. ROS: 19:35 Constitutional: Negative for body aches, chills, fever. cp 19:35 Respiratory: Negative for shortness of breath, wheezing. 19:35 Abdomen/GI: Negative for abdominal pain, nausea, vomiting, and diarrhea. 19:35 MS/extremity: Positive for pain, swelling, tenderness, of the medial aspect of right foot and medial aspect right ankle, Negative for injury or acute deformity. 19:35 Skin: Negative for rash. 19:35 Neuro: Negative for headache, weakness. 19:35 All other systems are negative. Exam: 19:40 Constitutional: The patient appears in no acute distress, alert, awake, non-toxic, well cp developed, well nourished, obese, uncomfortable. 19:40 Head/Face: Normocephalic, atraumatic. cp 19:40 Cardiovascular: Rate: normal. 19:40 Respiratory: the patient does not display signs of respiratory distress, Respirations: normal. 19:40 Musculoskeletal/extremity: Extremities: grossly normal except: noted in the medial aspect of right foot and proximal right great toe and medial aspect right ankle: pain, swelling, There is no evidence of erythema, Perfusion: the extremity is normally perfused throughout, Severe pain noted. Vital Signs: 17:33 BP 114 / 55; Pulse 83; Resp 16 S; Temp 98.0(TE); Pulse Ox 99% on R/A; Weight 127.01 kg aa5 (R); Height 5 ft. 0 in. (152.40 cm) (R); Pain 9/10; 17:33 Body Mass Index 54.68 (127.01 kg, 152.40 cm) aa5 MDM: 19:25 Patient medically screened. cp 19:45 Differential diagnosis: closed fracture, contusion, gout, cellulitis. cp 20:18 Data reviewed: vital signs, nurses notes, and as a result, I will discharge patient. cp 20:18 Counseling: I had a detailed discussion with the patient and/or guardian regarding: the cp historical points, exam findings, and any diagnostic results supporting the discharge/admit diagnosis, the need for outpatient follow up, a family practitioner, to return to the emergency department if symptoms worsen or persist or if there are any questions or concerns that arise at home. Response to treatment: the patient's symptoms have markedly improved after treatment, VSS. Pain improved, and as a result, I will discharge patient. Administered Medications: 19:29 CANCELLED (Physician Discretion): TORadol 30 mg IM once cp 19:40 Drug: Colchicine-Probenecid 2 tabs Route: PO; sg 19:40 Drug: Demerol 25 mg Route: IM; Site: right ventrogluteal; sg 19:40 Drug: Decadron 10 mg Route: IM; Site: right ventrogluteal; sg Disposition: 20:50 Chart complete. cp 23:13 Co-signature as Attending Physician, Nate Levine MD. rn Disposition: 06/22/20 20:19 Discharged to Home. Impression: Gout - Left Ankle and Left Foot. - Condition is Stable. - Discharge Instructions: Gout. - Prescriptions for Tramadol 50 mg Oral Tablet - take 1 tablet by ORAL route every 8 hours as needed; 12 tablet. Medrol (Bjorn) 4 mg Oral Tablets, Dose Pack - take 1 tablet by ORAL route as directed - follow package instructions; 1 packet. - Work release form, Medication Reconciliation Form, Thank You Letter, Antibiotic Education, Prescription Opioid Use form. - Follow up: Private Physician; When: 2 - 3 days; Reason: Worsening of condition. - Problem is an acute exacerbation. - Symptoms have improved. Signatures: Bo Fierro RN RN sg Nate Levine MD MD rn Calderon, Audri, RN RN aa5 Vinh Watkins PA PA cp Corrections: (The following items were deleted from the chart) 19: 19: TORadol 30 mg IM once ordered. cp cp 20:48 20:19 06/22/2020 20:19 Discharged to Home. Impression: Gout - Left Ankle and Left Foot. sg Condition is Stable. Forms are Medication Reconciliation Form, Thank You Letter, Antibiotic Education, Prescription Opioid Use. Follow up: Private Physician; When: 2 - 3 days; Reason: Worsening of condition. Problem is an acute exacerbation. Symptoms have improved. cp 06/23 18:06/22 19:25 MS/extremity: Positive for pain, swelling, tenderness, of the medial aspect cp of right foot and medial aspect right ankle, Negative for injury or acute deformity, cp 06/23 18:06/22 19:25 Skin: Negative for rash, cp cp 06/23 18:06/22 19:25 Constitutional: Negative for body aches, chills, fever, cp cp 06/23 18:06/22 19:25 Respiratory: Negative for shortness of breath, wheezing, cp cp 06/23 18:06/22 19:25 Abdomen/GI: Negative for abdominal pain, nausea, vomiting, and diarrhea, cp cp 06/23 18:06/22 19:25 Neuro: Negative for headache, weakness, cp cp 06/23 18:06/22 19:25 All other systems are negative, cp cp
== END 2020-06-22 20:48 | disposition home or self-care (01) ==
LOC: ER 17:03
DX: M10.9 Gout, unspecified (principal); Z88.6 Allergy status to analgesic agent; Z88.1 Allergy status to other antibiotic agents; Z88.8 Allergy status to other drugs, medicaments and biological substances
CPT/HCPCS: 96372; 99282; J1100; J2175

== ENCOUNTER 2021-07-01 11:34 | Emergency (ER) | payer SELFPAY ==
[2021-07-01 13:00] LABS: SARS-COV-2 RT PCR POSITIVE (NEGATIVE)
--- NOTE | 2021-07-01 13:07 | ER ---
Nurse's Notes [facility] Name: Farheen Espino Age: 41 yrs Sex: Female : 1980 Arrival Date: 07/01/2021 Time: 11:36 Bed Waiting Private MD: Diagnosis: Coronavirus infection, unspecified Presentation: 07/01 11:39 Chief complaint: Patient states: cough with mucus, SOB, decreased appetite, and jh5 diarrhea x1 week. Coronavirus screen: Vaccine status: Patient reports being unvaccinated. Client denies travel out of the [place] in the last 14 days. Ebola Screen: Patient negative for fever greater than or equal to 101.5 degrees Fahrenheit, and additional compatible Ebola Virus Disease symptoms Patient denies exposure to infectious person. Patient denies travel to an Ebola-affected area in the 21 days before illness onset. Initial Sepsis Screen: Does the patient meet any 2 criteria? No. Patient's initial sepsis screen is negative. Does the patient have a suspected source of infection? No. Patient's initial sepsis screen is negative. Risk Assessment: Do you want to hurt yourself or someone else? Patient reports no desire to harm self or others. Onset of symptoms was June 2021. 11:39 Method Of Arrival: Ambulatory 5 11:39 Acuity: CASSIA 4 jh5 Triage Assessment: 11:43 General: Appears in no apparent distress. obese, well groomed, well developed, Behavior jh5 is calm, cooperative, appropriate for age. Pain: Denies pain. Respiratory: Reports shortness of breath cough that is productive, Onset: The symptoms/episode began/occurred gradually, the patient has mild shortness of breath. 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 - Social history:: Smoking status: Patient denies any tobacco usage or history of. Screenin:44 Abuse screen: Denies threats or abuse. Denies injuries from another. Nutritional jh5 screening: No deficits noted. Tuberculosis screening: No symptoms or risk factors identified. Fall Risk None identified. Assessment: 11:56 Reassessment: COVID SWAB WAS SENT; PT EDUCATED ON WAIT TIME AND PLACED BACK IN [facility]. 5 11:57 Cardiovascular: No deficits noted. Rhythm is regular. Respiratory: Airway is patent [facility] Respiratory effort is even, unlabored, Breath sounds are clear. Vital Signs: 11:39 BP 116 / 53; Pulse 90; Resp 18; Temp 99.5; Pulse Ox 96% ; Weight 127.01 kg; Height 5 [facility] ft. 0 in. (152.40 cm); Pain 0/10; 11:39 Body Mass Index 54.68 (127.01 kg, 152.40 cm) 5 ED Course: 11:36 Patient arrived in ED. as 11:43 Triage completed. 5 11:43 Arm band placed on right wrist. 5 11:44 Milka Rod FNP-C is [facility]. kb 11:44 Nate Levine MD is Attending Physician. kb 11:44 Patient has correct armband on for positive identification. jh5 11:44 No provider procedures requiring assistance completed. 5 13:21 Patient did not have IV access during this emergency room visit. ss Administered Medications: No medications were administered Outcome: 13:06 Discharge ordered by . kb 13:21 Discharged to home ambulatory. ss 13:21 Condition: good 13:21 Discharge instructions given to patient, Instructed on discharge instructions, follow up and referral plans. Demonstrated understanding of instructions, follow-up care. 13:21 Patient left the ED. ss Signatures: Milka Rod FNP-C FNP-Trina Brown Shelby, RN RN ss Sharmaine Tripathi RN RN 5
--- NOTE | 2021-07-01 13:07 | EDPHYS ---
Physician Documentation [facility] Name: Farheen Espino Age: 41 yrs Sex: Female : 1980 Arrival Date: 07/01/2021 Time: 11:36 Bed Waiting Private MD: ED Physician Nate Levine HPI: 07/01 12:15 This 41 yrs old Female presents to ER via Ambulatory with complaints of kb Shortness Of Breath, Decreased Appetite, Diarrhea. 12:15 The patient or guardian reports cough, that is intermittent, described as mild, kb difficulty breathing, flu symptoms, myalgias. Onset: The symptoms/episode began/occurred 1 week(s) ago. Severity of symptoms: At their worst the symptoms were moderate, in the emergency department the symptoms are unchanged. Modifying factors: The symptoms are alleviated by nothing, the symptoms are aggravated by nothing. Associated signs and symptoms: Pertinent positives: diarrhea. The patient has not experienced similar symptoms in the past. The patient has not recently seen a physician. Pt reports cough, diarrhea, decreased appetite, chills, bodyaches, and slight dyspnea for a week. Daughter has the flu. 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 - Social history:: Smoking status: Patient denies any tobacco usage or history of. ROS: 12:15 Cardiovascular: Negative for chest pain, palpitations, and edema. kb 12:15 Constitutional: Positive for body aches, malaise. 12:15 Respiratory: Positive for cough, shortness of breath, Negative for dyspnea on exertion, hemoptysis, orthopnea, pleurisy, sputum production, wheezing. 12:15 All other systems are negative. Exam: 12:15 Constitutional: This is a well developed, well nourished patient who is awake, alert, kb and in no acute distress. Head/Face: Normocephalic, atraumatic. ENT: Moist Mucous membranes Cardiovascular: Regular rate and rhythm with a normal S1 and S2. No gallops, murmurs, or rubs. No pulse deficits. Respiratory: Respirations even and unlabored. No increased work of breathing. Talking in full sentences Skin: Warm, dry with normal turgor. Normal color. MS/ Extremity: Pulses equal, no cyanosis. Neurovascular intact. Full, normal range of motion. Neuro: Awake and alert, GCS 15, oriented to person, place, time, and situation. Moves all extremities. Normal gait. Psych: Awake, alert, with orientation to person, place and time. Behavior, mood, and affect are within normal limits. Vital Signs: 11:39 BP 116 / 53; Pulse 90; Resp 18; Temp 99.5; Pulse Ox 96% ; Weight 127.01 kg; Height 5 jh5 ft. 0 in. (152.40 cm); Pain 0/10; 11:39 Body Mass Index 54.68 (127.01 kg, 152.40 cm) jh5 MDM: 11:44 Patient medically screened. kb 12:15 Data reviewed: vital signs, nurses notes. Data interpreted: Pulse oximetry: on room air kb is 96 %. Interpretation: normal. 13:06 Counseling: I had a detailed discussion with the patient and/or guardian regarding: the kb historical points, exam findings, and any diagnostic results supporting the discharge/admit diagnosis, lab results, the need for outpatient follow up, a family practitioner, to return to the emergency department if symptoms worsen or persist or if there are any questions or concerns that arise at home. 07/01 11:44 Order name: COVID-19/FLU A+B (Document "Date of Onset" if Symptomatic); Complete Time: kb 13:06 Administered Medications: No medications were administered Disposition: 15:00 Co-signature as Attending Physician, Nate Levine MD. rn Disposition Summary: 07/01/21 13:06 Discharge Ordered Location: Home kb Condition: Stable kb Diagnosis - Coronavirus infection, unspecified kb Followup: kb - With: Emergency Department - When: As needed - Reason: Worsening of condition Followup: kb - With: Private Physician - When: 2 - 3 days - Reason: Recheck today's complaints, Continuance of care, Re-evaluation by your physician Discharge Instructions: - Discharge Summary Sheet kb - Viral Respiratory Infection, [id number] kb - COVID-19 kb Forms: - Medication Reconciliation Form kb - Thank You Letter kb - Antibiotic Education kb - Prescription Opioid Use kb Signatures: Dispatcher [employer] Milka Lauren, SONNY-Torres DENNIS-Nate Villatoro MD MD rn DeuceSharmaine RN RN jh5
[2021-07-01 13:54] VITALS: BP 116/53; TEMP 99.5; O2SAT 96
== END 2021-07-01 13:21 | disposition home or self-care (01) ==
LOC: ER 11:34
DX: U07.1 COVID-19 (principal); Z88.5 Allergy status to narcotic agent; Z88.8 Allergy status to other drugs, medicaments and biological substances
CPT/HCPCS: 0240U; 99281

== ENCOUNTER 2021-12-22 11:27 | Emergency (ER) | payer SELFPAY ==
--- NOTE | 2021-12-22 12:50 | ER ---
Nurse's Notes [facility] Name: Farheen Espino Age: 41 yrs Sex: Female : 1980 Arrival Date: 12/22/2021 Time: 11:28 Bed Waiting Private MD: Sadaf Anaya Diagnosis: ED Course: 12/22 11:28 Patient arrived in ED. mr 11:29 Sadaf Anaya is Private Physician. mr Administered Medications: No medications were administered Outcome: 12:49 Patient left the ED. iw Signatures: Jessica Spence Irene, RN RN iw
== END 2021-12-22 12:49 | disposition left against medical advice (07) ==
LOC: ER 11:27
DX: Z02.9 Encounter for administrative examinations, unspecified (principal)

== ENCOUNTER 2024-06-14 18:56 | Emergency (ER) | payer SELFPAY ==
[2024-06-14] MEDS ORDERED: ACETAMINOPHEN 500 MG TAB ONE (19:17)
[2024-06-14] MEDS ORDERED: IBUPROFEN 400 MG TAB ONE (19:17)
[2024-06-14] MEDS ORDERED: AZITHROMYCIN 250 MG TAB ONE (19:17)
--- NOTE | 2024-06-14 19:25 | EDPHYS ---
Physician Documentation [facility] Name: Farheen Espino Age: 44 yrs Sex: Female : 1980 Arrival Date: 06/14/2024 Time: 18:56 Bed IW2 Private MD: ED Physician Phong Brown HPI: 06/14 19:03 This 44 yrs old Female presents to ER via Unassigned with complaints of sp4 Difficulty Swallowing - throat blisters. 19:15 44-year-old female presents with acute onset of pain on the left side of the throat sp4 associated with pain on swallowing. . 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 - Infectious Disease History:: Denies. - Social history:: Smoking status: Patient reports the use of cigarette tobacco products, smokes one-half pack cigarettes per day. - Family history:: not pertinent. ROS: 19:20 Constitutional: Negative for fever, chills, and weight loss, positive for sore throat sp4 positive for pain with swallowing 19:20 All other systems are negative, Exam: 19:20 Constitutional: This is a well developed, well nourished patient who is awake, alert, sp4 and in no acute distress. Head/Face: Normocephalic, atraumatic. Eyes: Pupils equal round and reactive to light, extra-ocular motions intact. Lids and lashes normal. Conjunctiva and sclera are not injected. Cornea within normal limits. Periorbital areas with no swelling, redness, or edema. ENT: Nares patent. No nasal discharge, no septal abnormalities noted. Tympanic membranes are normal and external auditory canals are clear. Oropharynx with mild bilateral redness with streaky exudates left side of the pharynx Neck: Trachea midline, no thyromegaly or masses palpated, and no cervical lymphadenopathy. Supple, full range of motion without nuchal rigidity, or vertebral point tenderness. Chest/axilla: Normal chest wall appearance and motion. Nontender with no deformity. No lesions are appreciated. Cardiovascular: Regular rate and rhythm with a normal S1 and S2. No gallops, murmurs, or rubs. Normal PMI, no JVD. No pulse deficits. Respiratory: Lungs have equal breath sounds bilaterally, clear to auscultation and percussion. No rales, rhonchi or wheezes noted. No increased work of breathing, no retractions or nasal flaring. Abdomen/GI: Soft, with normal bowel sounds. No distension or tympany. No guarding or rebound. No evidence of tenderness throughout. Back: No spinal tenderness. No costovertebral tenderness. Skin: Warm, dry with normal turgor. Normal color with no rashes, no lesions, and no evidence of cellulitis. MS/ Extremity: Pulses equal, no cyanosis. Neurovascular intact. Full, normal range of motion. Neuro: Awake and alert, GCS 15, oriented to person, place, time, and situation. Cranial nerves II-XII grossly intact. Motor strength 5/5 in all extremities. Sensory grossly intact. Psych: Awake, alert, with orientation to person, place and time. Behavior, mood, and affect are within normal limits Vital Signs: 19:06 BP 148 / 89; Pulse 95; Resp 18; Temp 99; Pulse Ox 99% ; Weight 117.93 kg; Height 5 ft. cp4 0 in. ; Pain 0/10; 19:06 Body Mass Index 50.78 (117.93 kg, 152.4 cm) cp4 19:06 Pain Scale: Adult cp4 [place] Coma Score: 19:20 Eye Response: spontaneous(4). Motor Response: obeys commands(6). Verbal Response: sp4 oriented(5). Total: 15. MDM: 19:15 Medical Screening Exam initiated sp4 19:37 Differential diagnosis: apthous ulcer, bronchitis, shani-tarango virus, sp4 gingivostomatitis, group A strep tonsillitis. Data reviewed: vital signs, nurses notes, lab test result(s), finger stick glucose. ED course: Blood sugar is normal today at 102. Patient stable for discharge home with p.o. Zithromax.. 06/14 19:34 Order name: Glucose, Ancillary Testing; Complete Time: 19:34 EDMS 06/14 19:18 Order name: Accucheck Blood Glucose; Complete Time: 19:21 sp4 Administered Medications: 19:21 Drug: AZITHromycin PO 500 mg PO once Route: PO; cp4 19:39 Follow up: Response: No adverse reaction cp4 19:21 Drug: Ibuprofen PO 800 mg PO once Route: PO; cp4 19:39 Follow up: Response: No adverse reaction cp4 19:21 Drug: Acetaminophen PO 1000 mg PO once Route: PO; cp4 19:39 Follow up: Response: No adverse reaction cp4 Disposition Summary: 06/14/24 19:24 Discharge Ordered Notes: Location: Home sp4 Problem: new sp4 Symptoms: have improved sp4 Condition: Stable sp4 Diagnosis - Acute pharyngitis, unspecified sp4 Followup: sp4 - With: Private Physician - When: 7 - 10 days - Reason: Recheck today's complaints Discharge Instructions: - Discharge Summary Sheet sp4 - Pharyngitis sp4 Forms: - Patient Portal Instructions sp4 Prescriptions: - Ibuprofen 800 mg Oral Tablet - take 1 tablet ORAL route every 8 hours As needed take with food; 30 tablet; sp4 Refills: 0, Product Selection Permitted - Zithromax Z-Bjorn 250 mg Oral Tablet - take 1 tablet ORAL route as directed for 5 days Day 1 - take two (2) tablets sp4 one time. Day 2, 3, 4 , 5 take one (1) tablet once daily.; 6 tablet; Refills: 0, Product Selection Permitted Signatures: Dispatcher [facility] Phong Brown MD MD sp4 Lauren Brice cp4
--- NOTE | 2024-06-14 19:25 | ER ---
Nurse's Notes [facility] Name: Farheen Espino Age: 44 yrs Sex: Female : 1980 Arrival Date: 06/14/2024 Time: 18:56 Bed IW2 Private MD: Diagnosis: Acute pharyngitis, unspecified Presentation: 06/14 19:06 Chief complaint: Patient states: blisters in throat that started today. Coronavirus cp4 screen: Client denies travel out of the [place] in the last 14 days. At this time, the client does not indicate any symptoms associated with coronavirus-19. Ebola Screen: Patient negative for fever greater than or equal to 101.5 degrees Fahrenheit, and additional compatible Ebola Virus Disease symptoms Patient denies exposure to infectious person. Patient denies travel to an Ebola-affected area in the 21 days before illness onset. No symptoms or risks identified at this time. Initial Sepsis Screen: Does the patient meet any 2 criteria? HR > 90 bpm. No. Patient's initial sepsis screen is negative. Does the patient have a suspected source of infection? No. Patient's initial sepsis screen is negative. Risk Assessment: Do you want to hurt yourself or someone else? Patient reports no desire to harm self or others. Onset of symptoms was June 14, 2024. 19:06 Method Of Arrival: Ambulatory cp4 19:06 Acuity: CASSIA 4 cp4 Triage Assessment: 19:07 General: Appears in no apparent distress. uncomfortable, Behavior is calm, cooperative, cp4 appropriate for age. Pain: Denies pain. 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 - Infectious Disease History:: Denies. - Social history:: Smoking status: Patient reports the use of cigarette tobacco products, smokes one-half pack cigarettes per day. - Family history:: not pertinent. Screenin:21 [facility] ED Fall Risk Assessment (Adult) History of falling in the last 3 months, cp4 including since admission No falls in past 3 months (0 pts) Confusion or Disorientation No (0 pts) Intoxicated or Sedated No (0 pts) Impaired Gait No (0 pts) Mobility Assist Device Used No (0 pt) Altered Elimination No (0 pt) Score/Fall Risk Level 0 - 2 = Low Risk Oriented to surroundings, Maintained a safe environment, Assessed \T\ reinforced patient's understanding of fall precautions, Hourly rounding (assess needs \T\ fall precautionary measures) done. Abuse screen: Denies threats or abuse. Nutritional screening: No deficits noted. Tuberculosis screening: No symptoms or risk factors identified. Assessment: 19:21 General: Appears in no apparent distress. uncomfortable, Behavior is calm, cooperative, cp4 appropriate for age. Pain: Denies pain. Neuro: Level of Consciousness is awake, alert, obeys commands, Oriented to person, place, time, situation. Cardiovascular: Patient's skin is warm and dry. Respiratory: Airway is patent Respiratory effort is even, unlabored. GI: No signs and/or symptoms were reported involving the gastrointestinal system. : No signs and/or symptoms were reported regarding the genitourinary system. EENT: Reports difficulty swallowing since today. Derm: No signs and/or symptoms reported regarding the dermatologic system. Musculoskeletal: No signs and/or symptoms reported regarding the musculoskeletal system. Vital Signs: 19:06 BP 148 / 89; Pulse 95; Resp 18; Temp 99; Pulse Ox 99% ; Weight 117.93 kg; Height 5 ft. cp4 0 in. ; Pain 0/10; 19:06 Body Mass Index 50.78 (117.93 kg, 152.4 cm) cp4 19:06 Pain Scale: Adult cp4 [place] Coma Score: 19:20 Eye Response: spontaneous(4). Motor Response: obeys commands(6). Verbal Response: sp4 oriented(5). Total: 15. ED Course: 18:58 Patient arrived in ED. ra3 19:02 Monica Buenrostro, MACI is Primary Nurse. ld1 19:03 Phong Brown MD is Attending Physician. sp4 19:07 Triage completed. cp4 19:07 Arm band placed on right wrist. Patient placed in waiting room. cp4 19:21 Patient has correct armband on for positive identification. cp4 19:21 No provider procedures requiring assistance completed. Patient did not have IV access cp4 during this emergency room visit. 19:39 Provided Education on: pharyngitis. cp4 Administered Medications: 19:21 Drug: AZITHromycin PO 500 mg PO once Route: PO; cp4 19:39 Follow up: Response: No adverse reaction cp4 19:21 Drug: Ibuprofen PO 800 mg PO once Route: PO; cp4 19:39 Follow up: Response: No adverse reaction cp4 19:21 Drug: Acetaminophen PO 1000 mg PO once Route: PO; cp4 19:39 Follow up: Response: No adverse reaction cp4 Medication: 19:21 VIS not applicable for this client. cp4 Outcome: 19:24 Discharge ordered by . sp4 19:39 Discharged to home ambulatory, cp4 19:39 Condition: stable 19:39 Discharge instructions given to patient, Instructed on discharge instructions, follow up and referral plans. medication usage, Demonstrated understanding of instructions, follow-up care, medications, Prescriptions given X 1, 19:39 Patient left the ED. cp4 Signatures: Monica Buenrostro RN RN ld1 Phong Brown MD MD sp4 Lauren Brice cp4 Mar Mccall ra3
[2024-06-14 20:19] VITALS: BP 148/89; TEMP 99; O2SAT 99
== END 2024-06-14 19:39 | disposition home or self-care (01) ==
LOC: ER 18:56
DX: J02.9 Acute pharyngitis, unspecified (principal); E03.9 Hypothyroidism, unspecified; F17.210 Nicotine dependence, cigarettes, uncomplicated; Z88.1 Allergy status to other antibiotic agents; Z88.5 Allergy status to narcotic agent; Z88.8 Allergy status to other drugs, medicaments and biological substances
CPT/HCPCS: 82947; 99283